=== PATIENT | female | born 1955 | race Caucasian/White ===

== ENCOUNTER 2016-03-29 10:45 | Day surgery (SDC) | payer BC ==
[~2016-03-29 10:45] MED LIST: ACETAMINOPHEN 1000MG/100 ML PREMIX IV ONE; FAMOTIDINE 20MG TABLET PO ONE; MECLIZINE 25 MG TABLET PO ONE; METOCLOPRAMIDE 10 MG TABLET PO ONE
[2016-03-29] MEDS ORDERED: BUPIVACAINE 0.25% W/EPI MPF 30ML VIAL IVP ONE (14:38)
[2016-03-29] MEDS ORDERED: HYDROCODONE/APAP 7.5/325MG TABLET PO ONE (14:38)
[2016-03-29] MEDS ORDERED: LIDOCAINE 2% MDV (20MG/ML) 20ML VIAL IV ONE (14:58)
[2016-03-29] MEDS ORDERED: PROPOFOL 10 MG/ML VIAL IV ONE (14:58)
[2016-03-29] MEDS ORDERED: KETOROLAC 30 MG/ML VIAL IVP ONE (14:58)
[2016-03-29] MEDS ORDERED: ONDANSETRON HCL IV 4 MG/2 ML VIAL IVP ONE (14:58)
[2016-03-29] MEDS ORDERED: DEXAMETHASONE 4 MG/ML 1ML VIAL IVP ONE (14:58)
--- NOTE | 2016-03-30 11:15 | Operative Note ---
DATE OF SURGERY: 03/29/2016. SURGEON: Cuauhtemoc Petersen D.O. REFERRING PHYSICIAN: Richardson Lakhani D.O. PREOPERATIVE DIAGNOSES: 1. TORN MEDIAL MENISCUS OF THE RIGHT KNEE. 2. OSTEOARTHRITIS OF THE RIGHT KNEE. POSTOPERATIVE DIAGNOSES: 1. TORN MEDIAL AND LATERAL MENISCUS, RIGHT KNEE. 2. OSTEOARTHRITIS OF THE RIGHT KNEE. OPERATIVE PROCEDURE: 1. Arthroscopic partial medial and lateral meniscectomy of the right knee. 2. Arthroscopic chondroplasty of the medial femoral condyle and patella of the right knee. DESCRIPTION OF PROCEDURE: This 60-year-old female was taken to the operating room and was placed in the supine position on the operating room table. A general anesthetic was induced, and the right leg was elevated and exsanguinated. A tourniquet was inflated to 300 mm Hg. An arthroscopic knee nugent was applied. The right knee was prepped with Hibiclens and draped in the usual sterile fashion. An inferolateral portal was established with a 4.0 mm arthroscope. Initial evaluation of the joint demonstrated normal appearance of the suprapatellar pouch. However, she did have advanced degenerative disease of the patella. A very severe grade 3 lesion was identified with only small patches of articular cartilage remaining which was extremely thin. A chondroplasty was performed to stabilize the remainder of the articular cartilage. The trochlea, however, appeared essentially normal except down near the medial femoral condyle just at about the level of the meniscal rest, there was a grade 4 lesion. This area was approximately 1.5 cm in greatest dimension. This area demonstrated multiple loose fragments of articular cartilage surrounding it. Chondroplasty was performed to stabilize the remaining articular cartilage. The medial compartment was entered, and most of the weightbearing surface of the articular cartilage of the medial femoral condyle just demonstrated very mild grade 2 changes. The medial meniscus also demonstrated a tear of the posterior horn of the medial meniscus. This was resected with the rotating shaver and basket forceps to a smooth contoured surface. It was reprobed and confirmed to be stable. The intracondylar notch was examined and was found to be normal. The lateral compartment was entered, and extensive tearing of the lateral meniscus was present. This was much larger and much more extensive than the medial meniscus. The tear involved the entire meniscus with the entire anterior horn being torn. It was resected with the rotating shaver until about the 9 o'clock position where there was a remaining rim of approximately 5.0 to 7.0 mm of meniscus. The tear did not enter the popliteal hiatus. The unstable fragments of the meniscus were removed. The wound was copiously irrigated and suctioned. After trimming the meniscus, it was reprobed and was found to be stable. The joint was then copiously irrigated and suctioned. All areas were re-examined, and no additional findings were present. The joint was suctioned and the instruments were removed. The portal was infiltrated with 0.25% Marcaine with epinephrine. Sterile dressings were applied. The patient was taken to the recovery room in satisfactory condition. GROSS PATHOLOGY: This patient demonstrated a grade 4 lesion of the articular cartilage of the medial femoral condyle at about the level of the meniscal rest. This area was about 1.5 cm in greatest dimension. In addition, there was an advanced lesion at the very lateral edge of the lateral femoral condyle. This was a relatively narrow area of about 0.5 cm or so in width and was about 1.0 cm in length right at the very lateral edge of the articular cartilage. There was also a complex tear of the lateral meniscus as well as a tear of the medial meniscus as described above. 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 Cuauhtemoc Petersen D.O. Date Time Job Number: [id number] MTDD
== END 2016-03-29 13:55 | disposition home or self-care (01) ==
LOC: SUR 10:45
PROVIDERS: ATTEND Orthopaedic Surgery
DX: M23.221 Derangement of posterior horn of medial meniscus due to old tear or injury, right knee (principal); M23.241 Derangement of anterior horn of lateral meniscus due to old tear or injury, right knee; M17.11 Unilateral primary osteoarthritis, right knee
CPT/HCPCS: 29880; 29879; 01400; J1885; J2405